=== PATIENT | male | born 1960 ===

== ENCOUNTER 2024-12-03 07:00 | Outpatient (CLI) | payer OTHER ==
[~2024-12-03] VITALS: Ht 175.3 cm; Wt 104.3 kg
[2024-12-03] MEDS ORDERED: LOSARTAN POTASS50 MG PO (09:35)
[2024-12-03 09:39] VITALS: BP 200/110
[2024-12-03 09:41] VITALS: BP 180/110
[2024-12-03 09:51] VITALS: BP 160/100
[2024-12-03 10:34] LABS: PH,URINE 5.5 (5.0-8.0); URINE APPEARANCE Clear; URINE BILIRRUBIN Negative (NEGATIVE); URINE BLOOD Negative; URINE COLOR Yellow; URINE GLUCOSE Negative (NEGATIVE); URINE KETONE Negative (NEGATIVE); URINE LEUKOCYTE Trace; URINE NITRATE Negative; URINE PROTEIN Trace (NEGATIVE)
[2024-12-03 10:35] LABS: URINE BACTERIA 17.1 uL (0.0-1933); URINE EPITHELIAL CELLS 4.7 uL (0.0-38.8); URINE RBC 19.4 uL (0.0-20.8); URINE WBC 22.9 uL (0.0-23.2)
[2024-12-03 10:35] LABS: BASO % 1.1 % (0.1-1.2); EOS # 0.07 (0.04-0.54); EOS % 1.3 % (0.7-7.0); HEMATOCRIT 42.1 % (40.1-51.0); HEMOGLOBIN 13.5 g/dL (13.7-17.5); LYMPH # 1.15 (1.18-3.74); LYMPH % 20.9 % (19.3-53.1); MEAN CORPUSCULAR HEMOGLOBIN 27.7 pg (25.6-32.2); MONO # 0.43 (0.24-0.82); MONO % 7.8 % (4.7-12.5); NEUT # 3.78 (1.56-6.13); NEUT % 68.7 % (34.0-71.1); PLATELET COUNT 166 K/uL (163-369); RED BLOOD COUNT 4.87 M/uL (4.63-6.08); RED CELL DISTRIBUTION WIDTH 13.4 % (11.6-14.4)
[2024-12-03 11:01] LABS: INR 1.05; PARTIAL THROMBOPLASTIN TIME 29.7 SECONDS (22.0-34.0); PROTHROMBIN TIME 11.4 SECONDS (9.0-11.5)
[2024-12-03 11:51] LABS: ALBUMIN 3.9 gm/dL (3.4-5.0); BILIRUBIN TOTAL 0.7 mg/dL (0.3-1.2); CREATININE SERUM 1.04 mg/dL (0.70-1.30); GFR 71.67; GLOBULINA 3.5 G/DL (2.4-3.5); POTASSIUM 4.37 mEq/L (3.5-5.1); TOTAL PROTEIN 7.4 gm/dL (6.4-8.2)
[2024-12-03 12:20] LABS: RH POSITIVE
== END 2024-12-03 07:15 | disposition home or self-care (01) ==
LOC: LAB 07:00 → EDSTATUS 12-09 08:00 → SURH 12-09 08:00
PROVIDERS: ATTEND Orthopaedic Surgery Sports Medicine
DX: M17.11 Unilateral primary osteoarthritis, right knee (principal); D68.9 Coagulation defect, unspecified; I10 Essential (primary) hypertension; Z01.818 Encounter for other preprocedural examination